=== PATIENT | female | born 1980 | race Caucasian/White ===

== ENCOUNTER 2017-03-01 09:16 | Emergency (ER) | payer OTHER ==
[2017-03-01 09:36] VITALS: BP 116/73
--- NOTE | 2017-03-01 10:10 | UC ---
Respiratory Complaint HPI - History of Current Complaint Chief Complaint: UCGeneralIllness Stated Complaint: URI Time Seen by Provider: 03/01/17 09:49 Hx Obtained From: Patient Hx Last Menstrual Period: 2 weeks ago ?: No Onset/Duration: Gradual Onset - gradually worseining cold symps, cough over past 2 weeks Timing: Constant Severity Initially: Mild Severity Currently: Moderate Character: Cough: Productive Aggravating Factors: Recumbent Position Alleviating Factors: Other - mucinex Associated Signs And Symptoms: Positive: Fever, Nasal Congestion - Risk Factors Cardiac Risk Factors: Negative - Allergies/Home Medications Allergies/Adverse Reactions: Allergies Allergy/AdvReac Type Severity Reaction Status Date / Time Amoxicillin Allergy Mild Vomiting Verified 03/01/17 09:36 Home Medications: Home Medications Desogestrel & Ethinyl Estradio [Juleber 0.15-30 mg-Mcg] 1 tab PO DAILY 03/01/17 [History Confirmed 03/01/17] Sertraline* [Zoloft*] 1 tab PO DAILY 03/01/17 [History Confirmed 03/01/17] PMH/Surg Hx/FS Hx/Imm Hx Previously Healthy: Yes Psychological History: Depression - Surgical History Surgical History: None - Family History Known Family History: Positive: None - Social History Occupation: Employed Full-time Lives: With Family Alcohol Use: Rare Substance Use Type: None Smoking Status (MU): Never Smoked Tobacco - Immunization History Most Recent Influenza Vaccination: 01/29/13 Most Recent Tetanus Shot: 02/25/13 Most Recent Pneumonia Vaccination: none Review of Systems Constitutional: Negative Skin: Negative ENT: Nasal Discharge, Sinus Congestion Respiratory: Cough Cardiovascular: Negative Genitourinary: Negative Musculoskeletal: Negative Neurological: Negative Psychological: Negative All Other Systems Reviewed And Are Negative: Yes Physical Exam Triage Information Reviewed: Yes Appearance: Well-Appearing, No Pain Distress, Well-Nourished Vital Signs: Initial Vital Signs Temp 98.8 F 03/01/17 09:33 Pulse 74 03/01/17 09:33 Resp 16 03/01/17 09:33 BP 116/73 03/01/17 09:33 Pulse Ox 100 03/01/17 09:33 Vital Signs Reviewed: Yes Eyes: Positive: Conjunctiva Clear ENT: Positive: Nasal congestion, Nasal drainage Neck: Positive: Supple, No Lymphadenopathy Respiratory: Positive: No respiratory distress, Rhonchi - R side Cardiovascular Exam: Normal Cardiovascular: Positive: RRR Neurological Exam: Normal Psychological Exam: Normal Skin Exam: Normal Skin: Negative: rashes UC Diagnostic Evaluation - Laboratory O2 Sat by Pulse Oximetry: 100 Respiratory Course/Dx - Differential Dx/Diagnosis Differential Diagnosis/HQI/PQRI: Bronchitis, Influenza, Lower Resp Infection, Sinusitis Provider Diagnoses: bronchitis Discharge - Discharge Plan Condition: Stable Disposition: HOME Prescriptions: Azithromycin TAB* [Zithromax TAB (Z-BASIM) 250 mg #6 tabs] 2 tab PO .TODAY, THEN 1 DAILY #1 basim Referrals: Marianna Iglesias MD [Primary Care Provider] - 3 Days (if no better) Additional Instructions: use over the counter guiafenesin and dextromethorphan cough med (Robitussin) Tylenol for pain and fever drink plenty of fluids and rest
== END 2017-03-01 10:40 | disposition home or self-care (01) ==
LOC: UCEAST 09:16
DX: J40 Bronchitis, not specified as acute or chronic (principal); F32.9 Major depressive disorder, single episode, unspecified
CPT/HCPCS: 99212; G0463